=== PATIENT | male | born 1970 ===

== ENCOUNTER 2020-03-12 09:58 | Inpatient (IN) | payer SELFPAY ==
[2020-03-12] VITALS (23 sets, daily range): BP systolic 124–158; BP diastolic 70–102; PULSE 64–112; RESP 6–35; TEMP 35.8–37.1; O2SAT 96–99; BMI 30.4
--- NOTE | 2020-03-12 10:11 | XR_ITS ---
WS: [id number] Portable AP upright chest, 03/12/2020 Clinical Data: STEMI Comparison: None. Findings: No nodules, masses or effusions are seen. The heart is normal. The pulmonary vascularity is not increased. No pneumonia or pneumothorax is seen. XR/XR chest 1V portable [id number] Impression: Negative chest.
[2020-03-12] MEDS: aspirin 325 mg Tablet PO (10:12)
--- NOTE | 2020-03-12 10:12 | W.ED.CHESTPA ---
HPI - Chest Pain General: Chief Complaint: Chest Pain Stated Complaint: CP Time Seen by Provider: 03/12/20 10:11 History of Present Illness: HPI narrative: This patient is a 49-year-old male who presents to the emergency room with chest pain this morning. This pain is been fairly constant since about 2 AM and he has had shortness of breath and lightheadedness with it. He has been having episodes of chest pain off and on all week. He does not have a regular doctor. He does smoke. He is never been diagnosed with hyper tension or high cholesterol. He does not know of any family history of heart attacks at young ages. He does not take any prescription medicines. He is not allergic to any medications. MD complaint: chest pain Onset (ago): week(s) (8 hours of constant pain, off and on all week) Timing of current episode: episodic Prior episodes: No Onset: during rest Pain location: substernal Quality: aching and heaviness Relieving factors: nothing Exacerbating factors: nothing Review of Systems General: Reports: ROS unobtainable due to medical condition Physical Exam Const: COMMON NORMALS: no acute distress, patient oriented x3, no limitations and alert GENERAL APPEARANCE: cooperative HENMT: HEAD & SCALP: normal to inspection FACE & SINUS: normal facial exam Eye: GENERAL EYE: appearance normal, both eyes and all related structures Neck/C-Spine: COMMON NORMALS: supple, no meningeal signs and no JVD Chest: COMMONS NORMALS: normal inspection of the chest Resp: COMMON NORMALS: normal respiratory effort, No use of accessory muscles and clear to auscultation bilaterally AUSCULTATION: clear to auscultation bilaterally Cardio: COMMON NORMALS: no JVD, regular rate, regular rhythm and No murmurs present (Cardio) RATE: regular rate RHYTHM: regular rhythm GI: COMMON NORMALS: Normal to inspection, nondistended, normoactive bowel sounds present, Soft to palpation and non-tender INSPECTION: Yes normal to inspection AUSCULTATION: Yes normoactive bowel sounds PALPATION: Yes Soft to palpation Back/Pelvis: COMMON NORMALS: thoracic and lumbar spine normal to inspection Extremity: COMMON NORMALS: normal to inspection Neuro: COMMON NORMALS: patient oriented x3, moves all extremities, no focal motor deficits and no sensory deficits noted SENSORIUM/ORIENTATION: Yes alert MENINGEAL SIGNS: Yes no meningeal signs Psych: COMMON NORMALS: mental status grossly normal, cooperative and normal affect Skin: COMMON NORMALS: no rashes or lesions noted and turgor normal GENERAL SKIN EXAM: no rashes or lesions noted and turgor normal Course ED course: EKG was done shortly after patient arrived and a STEMI was immediately called. He has been started on the STEMI protocols and will be going to the [facility] most likely. Vital Signs: Vital signs: Vital Signs Temperature 96.5 F L 03/12/20 10:01 Pulse Rate 83 03/12/20 12:30 Respiratory Rate 16 03/12/20 12:30 Blood Pressure 147/94 03/12/20 12:30 Pulse Oximetry 99 03/12/20 12:30 MDM - Chest Pain Lab Data: Labs: Lab Results 03/12/20 03/12/20 03/12/20 Range/Units 10:10 10:10 10:10 WBC 7.4 (4.0-10.0) 10^3/ uL RBC 5.56 H (4.1-5.3) 10^6/u L Hgb 15.7 (11.7-16.6) g/dL Hct 49.1 (42.0-52.0) % MCV 88.3 (80-94) fL MCH 28.2 (28.0-34.0) pg MCHC 32.0 (30.0-36.0) g/dL RDW 13.1 (12.1-15.1) % Plt Count 293 (130-400) 10^3/c mm MPV 9.1 (7.4-10.4) fL Neut % (Auto) 66.8 % Lymph % (Auto) 26.1 % Estill % (Auto) 5.2 % Eos % (Auto) 0.5 % Baso % (Auto) 1.1 % Neut # (Auto) 4.96 (1.8-7.7) 10^3/u L Lymph # (Auto) 1.9 (0.8-4.8) 10^3/u L Estill # (Auto) 0.4 (0.2-0.9) 10^3/u L Eos # (Auto) 0.0 (0.0-0.8) 10^3/u L Baso # (Auto) 0.1 (0.0-0.1) 10^3/u L Nucleated RBC % (a uto) 0 % Nucleated RBCs # 0.0 /100WBC PT 11.80 L (12.1-14.9) SECO NDS INR 0.84 (0.8-1.2) APTT 30.7 (23.9-36.7) SECO NDS Sodium 132 L (136-145) mmol/L Potassium 3.7 (3.5-5.1) mmol/L Chloride 97 L (98-107) mmol/L Carbon Dioxide 23 (22-29) mmol/L Anion Gap 15.7 (5-19) BUN 16 (6-20) mg/dL Creatinine 1.2 (0.7-1.2) mg/dL GFR Calculation 64.6 L (90-130) mL/min Glucose 162 H (65-115) mg/dL Calculated Osmolal ity 279 L (285-295) mOsm/k g Calcium 10.0 (8.5-10.5) mg/dL Total Bilirubin 0.4 (0.15-1.2) mg/dL AST 93 H (0-40) U/L ALT 41 (0-41) U/L Alkaline Phosphata se 97 (40-130) IU/L Troponin T Baselin e (0-15) ng/L Total Protein 7.7 (6.6-8.7) g/dL Albumin 4.4 (3.5-5.2) g/dL Globulin 3.3 (1.3-4.6) g/dL 03/12/20 Range/Units 10:10 WBC (4.0-10.0) 10^3/ uL RBC (4.1-5.3) 10^6/u L Hgb (11.7-16.6) g/dL Hct (42.0-52.0) % MCV (80-94) fL MCH (28.0-34.0) pg MCHC (30.0-36.0) g/dL RDW (12.1-15.1) % Plt Count (130-400) 10^3/c mm MPV (7.4-10.4) fL Neut % (Auto) % Lymph % (Auto) % Estill % (Auto) % Eos % (Auto) % Baso % (Auto) % Neut # (Auto) (1.8-7.7) 10^3/u L Lymph # (Auto) (0.8-4.8) 10^3/u L Estill # (Auto) (0.2-0.9) 10^3/u L Eos # (Auto) (0.0-0.8) 10^3/u L Baso # (Auto) (0.0-0.1) 10^3/u L Nucleated RBC % (a uto) % Nucleated RBCs # /100WBC PT (12.1-14.9) SECO NDS INR (0.8-1.2) APTT (23.9-36.7) SECO NDS Sodium (136-145) mmol/L Potassium (3.5-5.1) mmol/L Chloride (98-107) mmol/L Carbon Dioxide (22-29) mmol/L Anion Gap (5-19) BUN (6-20) mg/dL Creatinine (0.7-1.2) mg/dL GFR Calculation (90-130) mL/min Glucose (65-115) mg/dL Calculated Osmolal ity (285-295) mOsm/k g Calcium (8.5-10.5) mg/dL Total Bilirubin (0.15-1.2) mg/dL AST (0-40) U/L ALT (0-41) U/L Alkaline Phosphata se (40-130) IU/L Troponin T Baselin e 223 H* (0-15) ng/L Total Protein (6.6-8.7) g/dL Albumin (3.5-5.2) g/dL Globulin (1.3-4.6) g/dL EKG Data^: EKG 1: EKG interpretation date: 03/12/20 EKG interpretation time: 10:14 Ischemic changes: acute STEMI Interpretation: Marked ST elevation in the inferior leads with reciprocal changes in 1 and aVL. Also elevation in tombstone ST segments in the precordial leads. Discharge Plan Discharge Patient Disposition: Admitted As Inpatient Clinical Impression: ST elevation myocardial infarction (STEMI) Qualifiers: Involved coronary artery: unspecified coronary artery Qualified Code(s): I21.3 - ST elevation (STEMI) myocardial infarction of unspecified site Clinical Impression: (Ruled Out): Biliary colic Condition: Stable Discharge Diet: As Directed Discharge Date/Time: 03/12/20 10:22 Coding Level of Care Code ED Transcript Evaluator for Giannig Fwd Exam Comprehensive
[2020-03-12 10:17] LABS: Basophils # 0.1 10^3/uL (0.0-0.1); Basophils % 1.1 %; Eosinophils % 0.5 %; Hematocrit 49.1 % (42.0-52.0); Hemoglobin 15.7 g/dL (11.7-16.6); Lymphocytes # 1.9 10^3/uL (0.8-4.8); Lymphocytes % 26.1 %; Mean Corpuscular Hemoglobin 28.2 pg (28.0-34.0); Mean Corpuscular Volume 88.3 fL (80-94); Mean Platelet Volume 9.1 fL (7.4-10.4); Monocytes # 0.4 10^3/uL (0.2-0.9); Monocytes % 5.2 %; Neutrophils # 4.96 10^3/uL (1.8-7.7); Neutrophils % 66.8 %; Nucleated Red Blood Cells % 0 %; Platelet Count 293 10^3/cmm (130-400); Red Blood Count 5.56 10^6/uL (4.1-5.3); Red Cell Distribution Width 13.1 % (12.1-15.1); White Blood Count 7.4 10^3/uL (4.0-10.0)
[2020-03-12] MEDS: heparin 5,000 unit/mL INJ 1 mL 4000 UNIT IVP (10:18)
[2020-03-12] MEDS: ticagrelor 90 mg Tablet 180 MG PO (10:19)
--- NOTE | 2020-03-12 10:19 | XACV_ITS ---
Ht: 173 cm Wt: 91 kg BSA: 2.11 m2 Gender: Male : 1970 Any Known Allergies: No known allergies Exam Priority: Routine Procedure(s): Procedure Description: Diagnostic procedure Procedure Description: PCI procedure Procedure Description: Left Heart Catheterization Procedure Description: Drug Eluting Coronary Stent Procedure Description: PTCA Procedure Description: Coronary Thrombectomy Procedure Description: Coronary Angiography Diagnostic Cath Status: Emergency Diagnostic Findings * Left main artery has luminal irregularities.. * LAD has diffuse luminal irregularities. No significant stenosis is noted. Distally the vessel is small in size.. * CX has luminal irregularities. It gives rise to 2 OM branches. No significant disease is noted in left circumflex system.. * Proximal Right Coronary Artery: Severe 100% stenosis, ROMÁN: 0 flow. There is large thrombotic burden noticed in proximal RCA.. * Coronary angiography shows right dominance. Interventional Findings * RCA was engaged with a JR4 guide catheter. 0.014 run-through guidewire was used to cross the lesion and was placed in PDA. Lesion was predilated with a 2.75 x 12 mm semi-compliant balloon. This was followed by aspiration thrombectomy using a Pronto catheter. We then placed a 3.5 x 18 mm drug-eluting stent. There was some haziness noted in the proximal part of the stent. We used 4.0 x 8 mm NC balloon to post dilate the stent. This resolved the haziness in proximal segment. At this time final angiogram of RCA was performed that showed excellent stent expansion, ROMÁN-3 flow and no residual stenosis. Guidewire and guide catheter were removed.. * Proximal Right Coronary Artery: 100% stenosis treated with AB TREK 2.75X12 RX BALLOON, JAZMINE Jauregui KAYCEE 3.5X18 SHELLEY, and MDT RUFUS EUPHORA RX [id number] BALLOON. 0% residual stenosis, ROMÁN: 3 flow. Conclusions 1. There is total thrombotic occlusion of proximal RCA. 2. Successful aspiration thrombectomy. 3. Proximal Right Coronary Artery was treated with two Balloon and Drug Eluting Stent. Recommendations * Admit to ICU. * Aggrastat drip for 4 hours. * Aspirin and Brilinta. * Statin therapy, lisinopril and beta-blu therapy. * Order echocardiogram. * Smoking cessation advised. * Cardiac rehab. Interventional RX Recommendation: PCI w/o planned CABG Diagnostic RX Recommendation: PCI w/o planned CABG Anticoagulation: Heparin Pressures Phase:Rest AO : 56 / 35 ( 45 ) @ 5:39:00 AM 105 / 81 ( 93 ) @ 5:40:00 AM 103 / 83 ( 94 ) @ 5:41:00 AM / ( -15 ) @ 5:44:00 AM 54 / 40 ( 48 ) @ 5:50:00 AM 87 / 72 ( 81 ) @ 5:55:00 AM 94 / 69 ( 82 ) @ 6:05:00 AM 85 / 60 ( 72 ) @ 6:16:00 AM Clinical Evaluation EBL: 5mL-10mL Procedural Details Current Diagnosis : STEMI. Pre-Procedure Time Out. Identified patient by full name and date of as verbalized by the patient/guarantor. Does the consent match the physician's order: N/A Emergent; Informed Consent not obtained due to time critical life threat. Accurate & Complete Informed Consent: N/A Emergent; Informed Consent not obtained due to time critical life threat. Inpatient/Outpatient History & Physical on Chart: N/A Emergent; Informed Consent not obtained due to time critical life threat. If H&P is completed, is and addenduem needed: N/A Emergent; Informed Consent not obtained due to time critical life threat; If yes, is the addendum complete: N/A Emergent; Informed Consent not obtained due to time critical life threat. Visualize and Verify Site with Patient/Guarantor: N/A. Relevant Radiology Images available: N/A Emergent; Informed Consent not obtained due to time critical life threat. Pre-op teaching completed and patient verbalized understanding. The risks, benefits, and alternatives of sedation and/or procedure were discussed by physician. The patient agrees to continue. Procedure started. Current diagnosis: STEMI. PERRLA. Strong, equal hand printed circuit board layout designer bilaterally. Lungs clear x 5 lobes. IV Site on Arrival: 18 gauge in the right anticubital. IV Fluids: 0.9% NaCl at KVO. 0 mL infused prior to laboratory animal care veterinarian. Oxygen started at 2liters/min via nasal canula. bilateral groins was prepped with chloroprep then draped in the usual sterile fashion. right radial was prepped with chloroprep then draped in the usual sterile fashion. Baseline sample Acquired. HR: 80 BPM. Physician notified. Equipment: 6F - Radial. Docitt Manifold Kit Model BT 2000. Cardiac Cath Pack. Heparinized Saline (2 units/mL), 1000 mL bag. Physician arrived. Physician scrubbed in. Lidocaine 1% infiltrated to the right radial. Immediate Pre-Procedure Time Out. Correct Patient: Yes; Correct Procedure: Yes; Correct Site: Yes; Correct Patient Position: Yes; Correct Supplies: Yes; Dried Flammable Prep: Yes; Blood Products Available: No;. Arterial access obtained. A 5 surinamese TIG catheter in over wire. Catheter out. 6 surinamese JR 4 guide catheter was inserted over the wire. Runthrough guidewire was advanced through the guide catheter to lesion in the prox RCA. ap pads applied to pt. Inflation number : 1 A AB TREK 2.75X12 RX BALLOON was prepped and advanced across the Prox RCA , then inflated to 8 ROSE for 0:14 seconds. Balloon out. inserted pronto aspiration catheter. Manual thrombectomy catheter inserted over to the wire. Manual thrombectomy performed. pronto catheter removed. Inflation Number : 2 A JAZMINE Jauregui KAYCEE 3.5X18 SHELLEY -Lot Number# [id number] exp 10-28-2021 was prepped and advanced across the Prox RCA. The stent was deployed at 12 ROSE for 0:33 seconds. Stent balloon out over wire. Results checked. Inflation number : 3 A JAZMINE HOOPER EUPHORA RX [id number] BALLOON was prepped and advanced across the Prox RCA , then inflated to 12 ROSE for 0:24 seconds. Balloon out. inserted pronto aspiration catheter. Manual thrombectomy performed. pronto catheter removed. Wire out. Guide catheter out. A 5 surinamese JL3.5 catheter in over wire. ACT drawn. Results 212 seconds. Therapeutic limits - pre-heparin administration 90-150 seconds and monitoring heparin during a vascular procedure >250 seconds. Multiple views taken of left coronary artery. Catheter out. wire out. A TR Band was successful obtaining hemostatsis at the Right Radial artery insertion site. TR band placed. Hemostasis obtained. PERRLA. Strong, equal hand printed circuit board layout designer bilaterally. No VTE prophylaxis required. Fluoro: 10:06. Contrast type used: Visipaque 320 mgI/mL, 500 mL bottle. [id number]. Medication's Wasted: Lidocaine 1% = 16 mL. Medication's Wasted: Other = cardene 25 mg. Medication's Wasted: Other = versed 1 mg. Medication's Wasted: Other = phenylephrine 24.9 mg. Medication's Wasted: Nitro = 49.8 mg. Total IV fluids: 500 mL. PCI Indication: STEMI. Post-op diagnosis: STEMI. Complications: none. Estimated blood loss: 5mL-10mL. Procedure completed. Patient transferred by bed to ICU. [facility] Clinical Fraility Score: 2: Well. Associate Director Qa Indications: ACS <= 24 hours. Cardiovascular Instability: Yes, if yes, Hemodynamic Instability. Vital chart was stopped. Access Site Site: Right Radial artery Sheath Size: 6 Fr Hemostasis Method: TR Band Hemostasis Success: Successful Procedure Medications Start: 10:28 AM Stop: 10:28 AM Medication: Versed Amount: 1 mg Route: I.V. Start: 10:28 AM Stop: 10:28 AM Medication: Fentanyl Amount: 50 mcg Route: I.V. Start: 10:31 AM Stop: 10:31 AM Medication: Versed Amount: 1 mg Route: I.V. Start: 10:31 AM Stop: 10:31 AM Medication: Nitrogylcerin Amount: 200 mcg Route: I.A. Start: 10:34 AM Stop: 10:34 AM Medication: Heparin Amount: 2000 units Route: I.V. Start: 10:37 AM Stop: 10:37 AM Medication: Fentanyl Amount: 50 mcg Route: I.V. Start: 10:37 AM Stop: 10:37 AM Medication: Heparin Amount: 1000 units Route: I.V. Start: 10:44 AM Stop: 10:44 AM Medication: Aggrastat 12.5 mg/250 mL Amount: 46 ml Route: I.V. bolus Start: 10:44 AM Stop: 10:44 AM Medication: Aggrastat 12.5 mg/250 mL Amount: 16.6 ml/hr Route: I.V. drip Start: 10:48 AM Stop: 10:48 AM Medication: Versed Amount: 1 mg Route: I.V. Start: 10:53 AM Stop: 10:53 AM Medication: 0.9% Saline Amount: 250 ml Route: I.V. bolus Start: 11:04 AM Stop: 11:04 AM Medication: Neosynephrine Amount: 100 mcg Route: I.V. Start: 11:08 AM Stop: 11:08 AM Medication: Heparin Amount: 2000 units Route: I.V. Start: 11:10 AM Stop: 11:10 AM Medication: 0.9% Saline Amount: 250 ml Route: I.V. bolus I, the attending physician, have reviewed and verified all procedure medications. Yes, all medications given per verbal order Report Signatures Finalized by Messi Boudreaux MD on 03/19/2020 04:39 PM
--- NOTE | 2020-03-12 10:23 | PM.HP ---
Providers/Chief Complaint Admitting Physician: Messi Boudreaux MD Chief Complaint: CP History of Present Illness Kamaljit Pillai is a 49 year old male who is a smoker with no significant past medical history presented to the hospital with chest pain for about 6 to 7 hours. According to the patient pain started at 3 AM today. He has been having on and off chest pain for the last 1 week. However today was the worst. It was substernal, 8-9/10 in intensity with radiation to the left arm. He did not notice any aggravating or relieving factors. He also noted shortness of breath and lightheadedness with it. His EKG on presentation showed inferior and anterolateral ST elevations. He was emergently taken to [facility] and coronary angiogram was performed. That showed proximal RCA thrombotic occlusion. He underwent aspiration thrombectomy and successful PCI with drug-eluting stent x1.Patient was transferred out of the [facility] in stable condition Review of Systems Narrative: CONSTITUTIONAL: No fever chills weight loss or gain or night sweats. [] HEENT: Normocephalic, atraumatic.[] RESPIRATORY: No cough, sputum, hemoptysis or wheezing.[] CARDIOVASCULAR: No shortness of breath, chest pain, PND, orthopnea, lower extremity edema, presyncope or syncope. [] GI: no nausea vomiting diarrhea. [] HOSPICE MUSIC THERAPY: No numbness, tingling, weakness or loss of function in any part of the body. [] MUSCULOSKELETAL: No knee or joint pain or rashes. [] Medications/Allergies Allergies Allergy/AdvReac Type Severity Reaction Status Date / Time No Known Allergies Allergy Verified 03/12/20 10:06 PFSH Acute PFSH: Social History (Updated 03/12/20 @ 19:05 by Messi Boudreaux M.D) Smoking and tobacco status: current every day smoker Vitals/I&O/Wt Last Vital Signs Temp 96.5 F L 03/12/20 10:01 Pulse 94 03/12/20 10:01 Resp 18 03/12/20 10:01 Pulse Ox 96 03/12/20 10:01 Weight last 48 hrs Weight 200 lb Physical Exam Narrative: EXAM NARRATIVE: GENERAL: Patient is alert, awake and oriented x3. [] NECK: No jugular vein distension. [] HEENT: No cyanosis. No icterus. No pallor. [] HEART: Regular S1 and S2. No murmur, rub or gallop. [] LUNGS: Clear to auscultate bilaterally. [] ABDOMEN: Soft, nontender and nondistended. Positive bowel sounds. No guarding, rebound or tenderness. [] CENTRAL NERVOUS SYSTEM: Grossly nonfocal. [] EXTREMITIES: Lower extremities with no edema bilaterally. Pulses palpable in the lower extremities, both dorsalis pedis and posterior tibial. []. Data : 03/12/20 10:10 03/12/20 10:10 A&P Assessment and plan (1) ST elevation myocardial infarction (STEMI): Status: Acute Qualifiers: Involved coronary artery: unspecified coronary artery Qualified Code(s): I21.3 - ST elevation (STEMI) myocardial infarction of unspecified site (2) Tobacco abuse: Status: Acute Patient had acute ST elevation myocardial infarction that was successfully treated with aspiration thrombectomy and PCI with drug-eluting stent x1 to proximal RCA. Patient is stable. Admit to ICU. Continue Aggrastat drip for 4 hours. Continue aspirin and Brilinta. Order echocardiogram. High intensity statin therapy. Once heart rate and blood pressure are stable we will initiate beta-blockers and KEKE inhibitors. Attestations Medical Necessity Statement*: Care expected to cross [address] Patient has acute ST elevation myocardial infarction along with hemodynamic instability during the cardiac catheterization successfully treated with aspiration thrombectomy and PCI with drug-eluting stent x1. Time Spent in Patient Care: Greater than 35 minutes Coding Level of Care Code Acute Digital Librarian for Ely Barksdale Diagnoses ST elevation myocardial infarction (STEMI) I21.3 Involved coronary artery: unspecified coronary artery Tobacco abuse Z72.0
[2020-03-12 10:30] LABS: INR 0.84 (0.8-1.2)
[2020-03-12 10:31] LABS: Partial Thromboplastin Time 30.7 SECONDS (23.9-36.7)
[2020-03-12 10:38] LABS: Alanine Aminotransferase 41 U/L (0-41); Albumin Level 4.4 g/dL (3.5-5.2); Alkaline Phosphatase 97 IU/L (40-130); Anion Gap 15.7 (5-19); Aspartate Amino Transferase 93 U/L (0-40); Blood Urea Nitrogen 16 mg/dL (6-20); Carbon Dioxide 23 mmol/L (22-29); Chloride 97 mmol/L (98-107); Creatinine Clr Calc Pharmacy 82.3391; Globulin 3.3 g/dL (1.3-4.6); Glomerular Filtration Rate 64.6 mL/min (90-130); Glucose 162 mg/dL (65-115); Osmolality Calculated 279 mOsm/kg (285-295); Potassium 3.7 mmol/L (3.5-5.1); Sodium 132 mmol/L (136-145); Total Bilirubin 0.4 mg/dL (0.15-1.2); Total Protein 7.7 g/dL (6.6-8.7)
[2020-03-12 10:46] LABS: Troponin(5th) Baseline 223 ng/L (0-15)
--- NOTE | 2020-03-12 11:28 | ECG_ITS ---
[facility] Test Date: 2020-03-12 Pat Name: Kamaljit Pillai Department: Room: Gender: Male Patient Intake Representative: : 1970 Requested By: Messi Boudreaux Order Number: [id number] Madeleine MD: Little Friedman M.D. Measurements Intervals [place] Rate: 68 P: 26 LA: 194 QRS: 12 QRSD: 104 T: -48 QT: 440 QTc: 471 Interpretive Statements SINUS RHYTHM ANTERIOR MYOCARDIAL INFARCTION [40+ ms Q WAVE AND/OR ST/T ABNORMALITY IN V3/V4], PROBABLY RECENT INFERIOR MYOCARDIAL INFARCTION [40+ ms Q WAVE AND/OR ST/T ABNORMALITY IN II/aVF], PROBABLY RECENT ACUTE ME Compared to ECG 03/12/2020 09:05:32 ST (T wave) deviation no longer present Myocardial infarct finding still present Electronically Signed On 03-12-2020 20:40:25 CDT by Little Friedman M.D. [email or web address]
--- NOTE | 2020-03-12 11:30 | PC.NURSE ---
To CPRU Pt received to CPRU from [facility], awaiting ICU bed. V/s stable, see flow sheet. Denies chest pain at this time. TR band intact to R radial, no hematoma or bleeding noted. Will continue to monitor. Call light in reach
--- NOTE | 2020-03-12 11:41 | USCV_ITS ---
YohanKamaljit zambrano Age: 49 Gender: M : 1970 Exam Date: 03/12/2020 15:30 Ordering Phys: Messi Boudreaux M.D ([email or web address]) Technologist: Jenelle Leonard Exam Location: [facility] [place] Indication: s/p stent, STEMI, chest pain BP: 131 / 83 HR: 71 Rhythm: Sinus Technical Quality: Good MEASUREMENTS (Male / Female) Normal Values 2D ECHO LV Diastolic Diameter PLAX 4.8 cm 4.2 - 5.9 / 3.9 - 5.3 cm LV Systolic Diameter PLAX 4.0 cm IVS Diastolic Thickness 1.1 cm 0.6 - 1.0 / 0.6 - 0.9 cm IVS Systolic Thickness 1.1 cm LVPW Diastolic Thickness 1.0 cm 0.6 - 1.0 / 0.6 - 0.9 cm LVPW Systolic Thickness 1.7 cm LVOT Diameter 2.1 cm LV Ejection Fraction 2D Teich 36.0 % LV Ejection Fraction MOD 2C 43.8 % LV Ejection Fraction 2C AL 48.3 % LA Diameter 3.0 cm LA Width 2.6 cm LA Height 3.8 cm RA Width 3.0 cm RA Height 3.8 cm M-MODE LV Diastolic Diameter MM 5.4 cm 4.2 - 5.9 / 3.9 - 5.3 cm LV Systolic Diameter MM 3.6 cm LV Ejection Fraction MM Teich 61.9 % IVS Diastolic Thickness MM 1.2 cm 0.6 - 1.0 / 0.6 - 0.9 cm IVS Systolic Thickness MM 1.8 cm LVPW Diastolic Thickness MM 1.2 cm 0.6 - 1.0 / 0.6 - 0.9 cm LVPW Systolic Thickness MM 1.8 cm Aortic Annulus Diameter 3.6 cm LA Ao Ratio MM 0.9 MV E Point Septal Separation 1.1 cm DOPPLER AV Peak Velocity 105.0 cm/s LVOT Peak Velocity 80.0 cm/s AV Area Cont Eq vti 2.9 cm squared AV Area Cont Eq pk 2.7 cm squared MV Peak Velocity 86.0 cm/s MV Area PHT 3.9 cm squared Mitral E to A Ratio 0.7 MV E' Velocity 33.5 cm/s Mitral E to MV E' Ratio 8.8 Mitral E to LV E' Lateral Ratio 7.5 Mitral E to LV E' Septal Ratio 10.7 TR Peak Velocity 142.0 cm/s TR Peak Gradient 8.1 mmHg PV Peak Velocity 82.0 cm/s RV Acceleration Time 0.1 s FINDINGS Left Ventricle Normal left ventricular size and wall thickness. LV systolic function is mildly reduced with EF of 40 to 45%. Mild to moderate hypokinesis of inferior and inferoseptal wall is noted. Normal left ventricular wall thickness. Grade 1 diastolic dysfunction is noted. Right Ventricle The right ventricle is normal in size and function. Right Atrium The right atrium is normal in size. Left Atrium The left atrium is normal in size. Mitral Valve Structurally normal mitral valve without significant stenosis or prolapse. There is no mitral regurgitation. Aortic Valve Structurally normal aortic valve without significant sclerosis or stenosis. There is no aortic regurgitation. Tricuspid Valve Structurally normal tricuspid valve without significant stenosis. Trace tricuspid regurgitation is noted. And TR jet to calculate RVSP. Pulmonic Valve Structurally normal pulmonic valve without significant stenosis. There is no pulmonic regurgitation. Pericardium Normal pericardium without effusion. Aorta Normal ascending aorta dimension. CONCLUSIONS LV systolic function is mildly reduced with EF of 40 to 45%. Above-mentioned wall motion abnormalities are present. Grade 1 diastolic dysfunction is noted. Messi Boudreaux MD (Electronically Signed) Final Date: 12 March 2020 18:12 S
--- NOTE | 2020-03-12 12:11 | ECG_ITS ---
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 Measurements Intervals [place] Rate: 73 P: 47 MN: 190 QRS: -21 QRSD: 96 T: -44 QT: 426 QTc: 471 Interpretive Statements SINUS RHYTHM LEFT VENTRICULAR HYPERTROPHY AND ST-T CHANGE [VOLTAGE CRITERIA PLUS ST/T ABNORMALITY] ANTERIOR MYOCARDIAL INFARCTION [40+ ms Q WAVE AND/OR ST/T ABNORMALITY IN V3/V4], PROBABLY RECENT INFERIOR MYOCARDIAL INFARCTION [40+ ms Q WAVE AND/OR ST/T ABNORMALITY IN II/aVF], PROBABLY RECENT ACUTE [place] Compared to ECG 03/12/2020 12:39:49 Left ventricular hypertrophy now present ST (T wave) deviation now present Myocardial infarct finding still present Electronically Signed On 03-12-2020 20:40:42 CDT by Little Friedman M.D. [email or web address]/store/[id number]
--- NOTE | 2020-03-12 13:15 | PC.NURSE ---
Transferred to ICU Report called to Mandi MCGARRY at this time and pt transferred to ICU via w/c. Care of pt taken over by Dina MCGARRY.
--- NOTE | 2020-03-12 15:20 | PC.NURSE ---
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
--- NOTE | 2020-03-12 15:36 | PC.NURSE ---
2 ml. removed from each tr band. echo in progress
[2020-03-12] MEDS: perflutren protein-a microsphr 0.22 mg/mL SDV 3 mL IV (16:11)
--- NOTE | 2020-03-12 16:11 | ECG_ITS ---
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 Measurements Intervals [place] Rate: 88 P: 30 ID: [id number] QRS: 88 QRSD: 105 T: 87 QT: 356 QTc: 433 Interpretive Statements SINUS RHYTHM MARKED ST ELEVATION, CONSIDER INFERIOR INJURY [MARKED ST ELEVATION W/O NORMALLY INFLECTED T WAVE IN II/aVF] MARKED ST ELEVATION, CONSIDER ANTEROLATERAL INJURY [MARKED ST ELEVATION W/O NORMALLY INFLECTED T WAVE IN V3-V6] ACUTE [place] No previous ECG available for comparison Electronically Signed On 03-12-2020 20:39:52 CDT by Little Friedman M.D. [id number]
--- NOTE | 2020-03-12 16:46 | PC.NURSE ---
upper tr band off. hematoma noted 2nd bnd was applied because of this. will monitor. 1st tr remains in place.
[2020-03-12 17:38] LABS: Troponin 5 6HR > 10000 ng/L (0-15)
[2020-03-12] MEDS: ticagrelor 90 mg Tablet PO (18:48)
[2020-03-12] MEDS: diphenhydrAMINE 50 mg/mL SDV 1mL 25 MG IVP (19:31)
[2020-03-12] MEDS: atorvastatin 40 mg Tablet 80 MG PO (20:49)
[2020-03-12] MEDS: sodium chloride 0.9% 1,000 ML 100 ML IV (20:54)
[2020-03-13] VITALS (16 sets, daily range): BP systolic 107–165; BP diastolic 62–103; PULSE 68–86; RESP 12–30; TEMP 36.7–37.8; O2SAT 96–99
[2020-03-13] MEDS: metoprolol tartrate 25 mg Tablet PO ×3 (00:15→17:52)
[2020-03-13 04:34] LABS: Basophils # 0.1 10^3/uL (0.0-0.1); Basophils % 0.8 %; Eosinophils # 0.1 10^3/uL (0.0-0.8); Eosinophils % 1.1 %; Hematocrit 44.4 % (42.0-52.0); Hemoglobin 14.3 g/dL (11.7-16.6); Lymphocytes # 1.1 10^3/uL (0.8-4.8); Lymphocytes % 11.7 %; Mean Corpuscular HGB Conc 32.2 g/dL (30.0-36.0); Mean Corpuscular Hemoglobin 28.3 pg (28.0-34.0); Mean Corpuscular Volume 87.7 fL (80-94); Mean Platelet Volume 9.7 fL (7.4-10.4); Monocytes # 0.7 10^3/uL (0.2-0.9); Monocytes % 7.1 %; Neutrophils # 7.32 10^3/uL (1.8-7.7); Neutrophils % 79.1 %; Nucleated Red Blood Cells % 0 %; Platelet Count 267 10^3/cmm (130-400); Red Blood Count 5.06 10^6/uL (4.1-5.3); Red Cell Distribution Width 13.3 % (12.1-15.1); White Blood Count 9.3 10^3/uL (4.0-10.0)
[2020-03-13 05:13] LABS: Anion Gap 13.8 (5-19); Blood Urea Nitrogen 13 mg/dL (6-20); Calcium 8.7 mg/dL (8.5-10.5); Carbon Dioxide 21 mmol/L (22-29); Chloride 106 mmol/L (98-107); Creatinine Clr Calc Pharmacy 109.7855; Glomerular Filtration Rate 90.1 mL/min (90-130); Glucose 135 mg/dL (65-115); Osmolality Calculated 286 mOsm/kg (285-295); Potassium 3.8 mmol/L (3.5-5.1); Sodium 137 mmol/L (136-145)
[2020-03-13] MEDS: sodium chloride 0.9% 1,000 ML 100 ML IV (06:27)
[2020-03-13] MEDS: aspirin 81 mg EC Tablet PO (09:32)
[2020-03-13] MEDS: ticagrelor 90 mg Tablet PO (09:32)
[2020-03-13] MEDS: lisinopril 2.5 mg Tablet PO (09:32)
--- NOTE | 2020-03-13 10:39 | PC.NURSE ---
D/C Prescriptions Perscriptions to prepare for d/c tomorrow were incorrectly sent to [facility] pharmacy. The pharmacy was contacted to cancel the orders and the prescriptions were called to [facility] pharmacy for meds to beds in order to ensure that the patient will be discharged with home medications in hand on wednesday 03/14.
--- NOTE | 2020-03-13 13:29 | PC.NURSE ---
pt transferred to [facility] via wheelchair. report off to Rochelle MCGARRY
--- NOTE | 2020-03-13 16:04 | P.PN_ITS ---
Subjective Subjective: Interval history: Patient is doing well. He denies any complaints of chest pain, shortness of breath or palpitations. He had a small hematoma postprocedure on the right radial access site which has resolved today. He had a temperature recorded at 100.1. According to patient he had recent tooth pain for which he had completed antibiotic course. EKG shows no significant changes and ST elevations have improved. Echocardiogram performed yesterday showed mildly reduced cardiac function with EF of 40 to 45%. Vitals/I&O/Wt Last Vital Signs Temp 98.0 F 03/13/20 14:49 Pulse 79 03/13/20 14:49 Resp 30 H 03/13/20 14:49 BP 140/84 03/13/20 14:49 Pulse Ox 99 03/13/20 14:49 03/13/20 03/13/20 03/13/20 06:59 14:59 22:59 Intake Total 1355 / 1935 620 / 620 Output Total 720 / 2420 750 / 750 Balance 635 / -485 -130 / -130 Weight last 48 hrs Weight 200 lb Physical Exam Narrative: EXAM NARRATIVE: GENERAL: Patient is alert, awake and oriented x3. [] NECK: No jugular vein distension. [] HEENT: No cyanosis. No icterus. No pallor. [] HEART: Regular S1 and S2. No murmur, rub or gallop. [] LUNGS: Clear to auscultate bilaterally. [] ABDOMEN: Soft, nontender and nondistended. Positive bowel sounds. No guarding, rebound or tenderness. [] CENTRAL NERVOUS SYSTEM: Grossly nonfocal. [] EXTREMITIES: Lower extremities with significant edema bilaterally. Pulses palpable in the lower extremities, both dorsalis pedis and posterior tibial. [] Data : 03/13/20 03:26 03/13/20 03:26 A&P Assessment and plan (1) ST elevation myocardial infarction (STEMI): Status: Acute Qualifiers: Involved coronary artery: unspecified coronary artery Qualified Code(s): I21.3 - ST elevation (STEMI) myocardial infarction of unspecified site (2) Tobacco abuse: Status: Acute (3) Hypertension: Status: Acute Patient had acute ST elevation myocardial infarction that was successfully treated with aspiration thrombectomy and PCI with drug-eluting stent x1 to proximal RCA. Patient is stable. Transfer out of ICU to cardiac stepdown unit. Continue aspirin. We will switch Brilinta to Plavix because of patient's insurance issues. Stop Brilinta and loaded with Plavix 600 mg at 6 PM today. Starting tomorrow patient will continue on aspirin and Plavix 75 mg daily. Continue beta-blu and KEKE inhibitor at current doses. Continue high intensity statin therapy. Patient had 1 episode of elevated temperature which was 100.1, however all his other temperature readings are normal and his white cell count is also normal. We will monitor for now. Attestations Medical Necessity Statement*: Care expected to cross [address] elevation myocardial infarction. Coding Level of Care Code Acute Bead Forming Machine Set Up Operator for Ely Barksdale Diagnoses ST elevation myocardial infarction (STEMI) I21.3 Involved coronary artery: unspecified coronary artery Tobacco abuse Z72.0 Hypertension I10
[2020-03-13] MEDS: clopidogrel 300 mg Tablet 600 MG PO (17:51)
[2020-03-13] MEDS: atorvastatin 40 mg Tablet 80 MG PO (20:04)
--- NOTE | 2020-03-13 21:55 | PC.NURSE ---
Patient resting in bed with eyes open watching tv at this time. Patient is very polite and cooperative with staff. Continue care.
--- NOTE | 2020-03-14 03:01 | PC.NURSE ---
Patient resting in room with lights on and eyes closed. Patient is very pleasant and complaint with staff and treatments. Patient uses urinal at night for voiding method. Continue care.
[2020-03-14 04:24] VITALS: BP 133/82; PULSE 73; RESP 12; TEMP 36.9; O2SAT 98
--- NOTE | 2020-03-14 05:45 | PC.NURSE ---
Patient continues to rest soundly in room with eyes closed. Patient very pleasant with staff and cooperative with all cares. Uneventful shift. Continue care.
[2020-03-14 06:59] VITALS: BP 136/95; PULSE 73; RESP 21; TEMP 36.6; O2SAT 98
--- NOTE | 2020-03-14 07:30 | PC.NURSE ---
Pt initial Rounding Pt is alert, awake, oriented. Denies any chest pain or discomfort.
--- NOTE | 2020-03-14 08:05 | PM.DCS ---
Discharge Providers Date of Admission: 03/12/20 14:47 Date of Discharge: March 14, 2020 Attending Provider at Admission: Messi Boudreaux M.D Attending Provider at Discharge: Messi Boudreaux M.D Diagnoses at Discharge Discharge Diagnosis (1) ST elevation myocardial infarction (STEMI): Status: Resolved Qualifiers: Involved coronary artery: unspecified coronary artery Qualified Code(s): I21.3 - ST elevation (STEMI) myocardial infarction of unspecified site (2) Tobacco abuse: Status: Acute (3) Hypertension: Status: Acute Reason for Visit Reason for Visit: CP Hospital Course Hospital Course: 49 year old male who is a smoker with no significant past medical history presented to the hospital with chest pain for about 6 to 7 hours. He was having on and off chest pain for the last 1 week. . It was substernal, 8-9/10 in intensity with radiation to the left arm. He did not notice any aggravating or relieving factors. He also noted shortness of breath and lightheadedness with it. His EKG on presentation showed inferior and anterolateral ST elevations. He was emergently taken to Hydraulics Engineer and coronary angiogram was performed. That showed proximal RCA thrombotic occlusion. He underwent aspiration thrombectomy and successful PCI with drug-eluting stent x1.his ST elevations resolved. His chest pain went away. Patient stated in the hospital after the procedure. His Brilinta was switched to Plavix because of insurance issues. He was started on atorvastatin, lisinopril and metoprolol. An echocardiogram was performed that showed mildly reduced EF of 40 to 45%. Patient was discharged home in a stable condition. Physical Exam Narrative: EXAM NARRATIVE: GENERAL: Patient is alert, awake and oriented x3. [] NECK: No jugular vein distension. [] HEENT: No cyanosis. No icterus. No pallor. [] HEART: Regular S1 and S2. No murmur, rub or gallop. [] LUNGS: Clear to auscultate bilaterally. [] ABDOMEN: Soft, nontender and nondistended. Positive bowel sounds. No guarding, rebound or tenderness. [] CENTRAL NERVOUS SYSTEM: Grossly nonfocal. [] EXTREMITIES: Lower extremities with significant edema bilaterally. Pulses palpable in the lower extremities, both dorsalis pedis and posterior tibial. 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 Stat Exams 03/12/20 10:19 Taken US/CV paperwork R outine Ultrasound 03/12/20 16:12 Taken Vitals: Last Vital Signs Temp 97.9 F 03/14/20 06:59 Pulse 73 03/14/20 06:59 Resp 21 H 03/14/20 06:59 BP 136/95 03/14/20 06:59 Pulse Ox 98 03/14/20 06:59 Discharge Plan Discharge Patient Disposition: Home Condition: Stable Prescriptions: New atorvastatin 40 mg Tablet 80 mg PO BEDTIME Qty: 60 RF: 3 aspirin 81 mg Tablet,Delayed Release (Dr/Ec) 81 mg PO DAILY Qty: 90 RF: 3 lisinopril 2.5 mg Tablet 2.5 mg PO DAILY Qty: 60 RF: 3 metoprolol tartrate 25 mg Tablet 25 mg PO BID Qty: 120 RF: 3 clopidogrel 75 mg Tablet 75 mg PO DAILY Qty: 60 RF: 6 Discontinued garlic [garlic oil] 1,000 mg Capsule 1,000 mg PO DAILY RF: 0 ibuprofen 200 mg Tablet 200 mg PO Q6H PRN (Reason: pain/fever) RF: 0 omega 5-mix-cjm-fish oil [Fish Oil] 1,000 mg (120 mg-180 mg) Capsule 1 cap PO DAILY RF: 0 Discharge Orders: Discharge Order (Routine); Ordered 03/14/20 Ordered By: Messi Boudreaux Referrals: PCP [Other] (Discharge Planning will contact you to set up a Primary Care Provider. If you haven't heard from them by Sunday. Please call ) Messi Boudreaux M.D [Physician] - ([facility] will contact you to schedule an follow-up appointment in 1 month, If you haven't heard from them by Sunday afternoon. Pleae call ) Victoria Carranza FNP [Nurse Practitioner] - ([facility] will contact you to schedule an follow-up appointment with Victoria Carranza in 4 to 7 days. If you haven't heard from them by Sunday afternoon. Please call . ) Discharge Diet: As Directed Discharge Activity: Limit activity as instructed Patient Instructions: Metoprolol (By mouth), Lisinopril (By mouth), Aspirin (By mouth), Atorvastatin (By mouth), Clopidogrel (By mouth), Myocardial Infarction (DC), Left Heart Catheterization (DC), How to Stop Smoking (DC), Hypertension (DC), Post Angiogram Home Care Instructions, Post Heart Attack Stoplight Activity Restrictions/Additional Instructions: Please do not lift any weight more than 5 to 10 pounds for the next 5 days. Check your Blood pressure and heart rate at home to bring to your next appointment. Discharge Date/Time: 03/14/20 09:49 Discharge Attestations Time Spent in Discharge Care*: greater than 30 min Quality Metrics Clinical Quality Measures During this hospital stay, did patient experience: None Coding Level of Care Code Acute Vision Specialist for Ely Barksdale Diagnoses ST elevation myocardial infarction (STEMI) I21.3 Involved coronary artery: unspecified coronary artery Tobacco abuse Z72.0 Hypertension I10
[2020-03-14] MEDS: clopidogrel 75 mg Tablet PO (08:31)
[2020-03-14] MEDS: lisinopril 2.5 mg Tablet PO (08:31)
[2020-03-14] MEDS: metoprolol tartrate 25 mg Tablet PO (08:32)
[2020-03-14] MEDS: aspirin 81 mg EC Tablet PO (08:32)
[2020-03-14 08:42] VITALS: BP 136/95; PULSE 73; RESP 21; TEMP 36.6; O2SAT 98
--- NOTE | 2020-03-14 08:43 | PC.NURSE ---
Discharge to home w/caregiver Informed pt to follow-up w/ his cardiologists as discussed and scheduled. Informed pt that he will need a pcp as outpatient if he choose to. Educational teaching provided to pt on importance of medication adherence, smoking cessation, new meds dosing, possible side effects, timing and what they are for. Provided pt with educational video regarding things to know after having a heart attack. Discuss to pt to check his BP and heart rate at home. Informed pt on [place] stoplight. Discuss to pt on home care instructions post angiogram. Pt verbalizes understanding and teach back. Provided pt w/ discharge packet.
--- NOTE | 2020-03-14 09:35 | PC.NURSE ---
Swelling on face Pt stated, I had a tooth infection on right side. I took my friend antibiotic before and had swelling in my neck. The doctor told me he might prescribed me with an antibiotic. Educated pt to be watchful on taking someone else medication. Educated him on signs and symptoms of allergic reaction. Pt stated he started to have swelling on his face sunday after the angiogram and he said, they are telling me it might be from the dye. But my face looks much better and less swollen today. Discuss to pt that he might develop an allergic reaction. Informed him to watch for any allergies. Notified Dr. Boudreaux and he order that pt need a primary doctor to look at his teeth. Notified financial services professional Jennifer RN to set-up a pcp for this pt since he does not have one.
--- NOTE | 2020-03-15 08:23 | PC.RESP ---
SMOKING CESSATION INFORMATION SENT TO PATIENT.
== END 2020-03-14 09:49 | disposition home or self-care (01) | DRG 247 ==
LOC: ER 10:16 → CCL 10:25 → ICU 03-13 08:07 → CSU 03-13 13:13
PROVIDERS: Emergency Medicine; Admitting Provider Internal Medicine; Visit Provider Internal Medicine
PROC: 027034Z Dilation of Coronary Artery, One Artery with Drug-eluting Intraluminal Device, Percutaneous Approach (ICD-10-PCS; principal; 2020-03-12 11:00)
PROC: 027034Z Dilation of Coronary Artery, One Artery with Drug-eluting Intraluminal Device, Percutaneous Approach (ICD-10-PCS; 2020-03-12 11:00)
DX: I21.9 Acute myocardial infarction, unspecified (principal); F17.210 Nicotine dependence, cigarettes, uncomplicated; I25.10 Atherosclerotic heart disease of native coronary artery without angina pectoris; I10 Essential (primary) hypertension
CPT/HCPCS: 12345; 36415; 71045; 80048; 80053; 84484; 85025; 85347; 85610; 85730; 92973; 93005; 93306; 93458; 96375; 99283; C1725; C1769; C1874; C1887; C1894; C9600; J0461; J1200; J1644; J2250; J2370; J3010; J3246; J3490; J7030; J7050; Q9956; Q9967

== ENCOUNTER → 2020-03-19 11:02 | Outpatient (BNVA) | payer SELFPAY | PROVIDERS: Visit Provider Nurse Practitioner Family | DX: I25.10 Atherosclerotic heart disease of native coronary artery without angina pectoris (principal) | CPT/HCPCS: 80048 ==

== ENCOUNTER → 2021-04-15 07:39 | Outpatient (BNVA) | payer SELFPAY | PROVIDERS: PCP Family Medicine Adult Medicine; Visit Provider Family Medicine Adult Medicine | DX: E78.5 Hyperlipidemia, unspecified (principal); I10 Essential (primary) hypertension; I25.10 Atherosclerotic heart disease of native coronary artery without angina pectoris; M10.9 Gout, unspecified; K02.9 Dental caries, unspecified; R94.4 Abnormal results of kidney function studies; Z13.6 Encounter for screening for cardiovascular disorders; Z79.02 Long term (current) use of antithrombotics/antiplatelets | CPT/HCPCS: 80053; 80061; 83036; 84443; 85025 ==

== ENCOUNTER 2023-02-13 23:45 | Emergency (ER) | payer SELFPAY ==
[2023-02-13 23:49] VITALS: BP 173/85; PULSE 100; RESP 16; TEMP 36.7; O2SAT 99; BMI 29.0
--- NOTE | 2023-02-13 23:57 | ED_ITS ---
HPI - Extremity Problem General: Chief complaint: Extremity Injury, Lower Stated complaint: Rt Foot Pain Time Seen by Provider: 02/13/23 23:57 History of Present Illness: 52-year-old male patient comes in today with complaints of injury to the right ankle. Patient reports Sunday he was trying to pull a branch out of the tree when he slipped and fell twisting his ankle. Patient came in today for complaints of bruising and pain to the medial aspect of the ankle. Patient appears nontoxic. Patient appears in mild to moderate pain. Review of Systems General: Reports: 10 or more systems reviewed and unremarkable except in HPI and below Musc: Reports: extremity pain, extremity swelling and joint pain (Right ankle) PFSH ED PFSH: Medical History Acute gout CAD in [place] artery Dental caries Hyperlipidemia Hypertension Myocardial infarction Prediabetes Smoker Surgical History Hx of heart artery stent (03/12/20) proximal RCA [place] Social History Smoking and tobacco status: current every day smoker cigarettes Quit status (tobacco): considering quitting Alcohol intake: never Substance/Drug Use: never Physical Exam Const: COMMON NORMALS: alert HENMT: COMMON NORMALS: normocephalic HEAD & SCALP: normocephalic Chest: COMMONS NORMALS: normal inspection of the chest Back/Pelvis: COMMON NORMALS: thoracic and lumbar spine normal to inspection Extremity: RIGHT LOWER EXTREMITY: Yes foot & digits (Bilateral bruising and swelling, distal pulse sensation intact) Neuro: SENSORIUM/ORIENTATION: Yes alert Skin: COMMON NORMALS: turgor normal GENERAL SKIN EXAM: turgor normal Course Vital Signs: Vital signs: Vital Signs Temperature 98.0 F 02/13/23 23:49 Pulse Rate 100 02/13/23 23:49 Respiratory Rate 16 02/13/23 23:49 Blood Pressure 173/85 02/13/23 23:49 Pulse Oximetry 99 02/13/23 23:49 Oxygen Delivery Me thod Room Air 02/13/23 23:49 MDM - Extremity (Nontraumatic) Medical Decision Making 52-year-old male patient comes in with injury to the right ankle and lower leg. On exam patient has some bruising and swelling to the lateral aspect of the right ankle. No obvious deformity. Pulses and sensation are intact. Differential diagnosis includes fracture, sprain, contusion. X-ray of the tib-fib and ankle noted no fractures. Reviewed exam with patient with recommendations for treatment with elastic bandage and crutches. Patient reported understanding and agreed to plan. Patient was given 6 tablets of hydrocodone for severe pain. Patient was otherwise recommended use acetaminophen and ibuprofen. Along with ice and heat. Discharge Plan Discharge Patient Disposition: Home Clinical Impression: Ankle sprain and strain Condition: Stable Prescriptions: New hydrocodone-acetaminophen 5-325 mg tablet 1 tab PO Q8H PRN (Reason: pain (scale score 7-10)) Qty: 6 0RF No Action nitroglycerin [Nitrostat] 0.4 mg tablet, sublingual 0.4 mg sublingual Q5M PRN (Reason: chest pain) Qty: 25 2RF Rx Instructions: do not exceed 3 doses per episode metoprolol tartrate 25 mg tablet 12.5 mg PO BID Qty: 90 3RF colchicine (gout) 0.6 mg tablet See Rx Instructions PO .COMPLEX Qty: 3 0RF Rx Instructions: 1.2 mg orally initially, followed by 0.6 mg orally after 1 hour orally allopurinol 300 mg tablet 300 mg PO DAILY Qty: 30 5RF indomethacin 75 mg capsule, extended release 75 mg PO BID Qty: 30 0RF aspirin 81 mg tablet,delayed release (DR/EC) 81 mg PO DAILY Qty: 90 3RF losartan 25 mg tablet 25 mg PO DAILY Qty: 90 3RF clopidogrel 75 mg tablet 75 mg PO DAILY Qty: 90 3RF atorvastatin 80 mg tablet 80 mg PO BEDTIME Qty: 90 3RF Discharge Orders: Discharge ED (Routine); Ordered 02/14/23 Ordered By: Titi Leon Referrals: Kulwant Chung MD [Primary Care Provider] - Discharge Activity: Increase activity as tolerated Patient Instructions: Ankle Sprain (ED) Activity Restrictions/Additional Instructions: Activity as tolerated. Use acetaminophen and/or ibuprofen to help control pain. Use hydrocodone for severe pain. Use ice or heat for further pain relief. Follow-up with primary care as needed. Coding Level of Care Code ED Wallpaper Inspector And Shipper for Ely Barksdale
--- NOTE | 2023-02-14 | XRR_ITS ---
PROCEDURE INFORMATION: Exam: XR Right Ankle Exam date and time: 02/14/2023 12:03 AM Age: 52 years old Clinical indication: Pain; Ankle; Right; Additional info: Injury TECHNIQUE: Imaging protocol: Radiologic exam of the right ankle. Views: 3 or more views. COMPARISON: No relevant prior studies available. FINDINGS: Bones/joints: No acute fracture or dislocation is noted. The skeletal structures seem age-appropriate. Mild DJD. Calcaneal enthesophytes. Soft tissues: Unremarkable. XR/XR ankle RT min 3V* [id number] IMPRESSION: No acute findings.
--- NOTE | 2023-02-14 | XRR_ITS ---
PROCEDURE INFORMATION: Exam: XR Right Tibia and Fibula Exam date and time: 02/14/2023 12:03 AM Age: 52 years old Clinical indication: Pain; Lower leg; Right; Additional info: Injury TECHNIQUE: Imaging protocol: Radiologic exam of the right tibia and fibula. Views: 2 views. COMPARISON: No relevant prior studies available. FINDINGS: Bones/joints: No acute fracture or dislocation is noted. The skeletal structures seem age-appropriate. Mild DJD. Soft tissues: Unremarkable. XR/XR tibia fibula RT 2V [id number] IMPRESSION: No acute findings.
[2023-02-14] MEDS: HYDROcodone-acetaminophen 5-325 mg Tablet 1 TAB PO (00:28)
[2023-02-14 00:38] VITALS: BP 173/85; PULSE 100; RESP 16; TEMP 36.7; O2SAT 99
== END 2023-02-14 00:39 | disposition home or self-care (01) ==
PROVIDERS: Emergency Provider Nurse Practitioner Family; PCP Family Medicine Adult Medicine
DX: S93.401A Sprain of unspecified ligament of right ankle, initial encounter (principal); S96.911A Strain of unspecified muscle and tendon at ankle and foot level, right foot, initial encounter; Z79.82 Long term (current) use of aspirin; Z79.02 Long term (current) use of antithrombotics/antiplatelets; F17.210 Nicotine dependence, cigarettes, uncomplicated; I25.10 Atherosclerotic heart disease of native coronary artery without angina pectoris; E78.5 Hyperlipidemia, unspecified; I10 Essential (primary) hypertension; I25.2 Old myocardial infarction; X50.1XXA Overexertion from prolonged static or awkward postures, initial encounter
CPT/HCPCS: 73590; 73610; 99283; E0114

== ENCOUNTER → 2025-03-24 09:02 | Outpatient (BNVA) | payer SELFPAY | DX: I10 Essential (primary) hypertension (principal); R73.03 Prediabetes; R35.1 Nocturia | CPT/HCPCS: 80053; 80061; 83036; 85025; G0103 ==